=== PATIENT | male | born 1975 | race Caucasian/White ===

== ENCOUNTER 2017-11-09 14:40 | Observation (INO) | payer OTHER ==
[2017-11-09 15:19] LABS: #Eosinphils 0.3 thou/uL (0.0-0.7); #Lymphocytes 1.9 thou/uL (1.20-3.40); #Monocytes 0.8 thou/uL (0.11-0.59); #Neutrophils 5.2 thou/uL (1.40-6.50); %Basophils 0.5 % (0.0-1.0); %Eosinophils 3.9 % (0.0-10.0); %Lymphocytes 22.6 % (21.0-51.0); %Monocytes 9.6 % (0.0-10.0); %Neutrophils 63.4 % (42.0-75.0); Hemoglobin 14.4 g/dL (14.0-18.0); Mean Corpuscular HGB CONC 34.1 g/dL (32.0-36.0); Mean Corpuscular Hemoglobin 31.2 pg (27.0-31.0); Mean Corpuscular Volume 91.6 fl (80.0-94.0); Mean Platelet Volume 7.6 fL (7.4-10.4); Platelet Count 203 thou/uL (130-400); RBC Distribution Width 11.4 % (11.5-14.5); White Blood Cell (WBC) Count 8.2 thou/uL (4.8-10.8)
[2017-11-09 15:42] LABS: ALT (SGPT) 26 U/L (8-55); AST (SGOT) 26 U/L (5-34); Albumin 4.5 g/dL (3.5-5.0); Alkaline Phosphatase 77 U/L (40-150); Anion Gap 14 mmol/L (10-20); BUN (Urea Nitrogen) 13 mg/dL (8.9-20.6); Bilirubin, Total 0.7 mg/dL (0.2-1.2); CK (CPK) 425 U/L (30-200); Calc. Creatinine Clearance 0 mL/min (70-130); Calcium 9.3 mg/dL (7.8-10.44); Carbon Dioxide 22 mmol/L (22-29); Chloride 105 mmol/L (98-107); Estimated GFR-MDRD 88; Globulin 2.8 g/dL (2.4-3.5); Glucose 108 mg/dL (70-105); Potassium 3.9 mmol/L (3.5-5.1); Protein, Total 7.3 g/dL (6.0-8.3); Sodium 137 mmol/L (136-145)
[2017-11-09 15:44] LABS: CKMB 6.5 ng/mL (0-6.6); Troponin I Less than 0.010 ng/mL (< 0.028)
[2017-11-09] MEDS ORDERED: Nitroglycerin 0.4 MG TAB (25 Tab Bottle) ONE (16:16)
--- NOTE | 2017-11-09 17:02 | RAD ---
PORTABLE CHEST 1 VIEW: Date: 11/09/17 Time: 1551 hours HISTORY: Chest pain. FINDINGS: The heart size is normal. The lungs are well expanded without focal areas of consolidation, pneumotho rax, or pleural effusions. IMPRESSION: No radiographic evidence of acute cardiopulmonary process. POS: [facility]
[2017-11-09] MEDS ORDERED: Nitroglycerin 0.4 MG TAB (25 Tab Bottle) PO PRN (18:05)
[2017-11-09] MEDS ORDERED: Acetaminophen 325 MG TAB PO PRN (18:05)
[2017-11-09] MEDS ORDERED: Acetaminophen 650 MG Suppository PR PRN (18:05)
--- NOTE | 2017-11-09 18:39 | HP ---
PRIMARY CARE PHYSICIAN: Dr. Nataliya Raines at [facility] in [place]. CHIEF COMPLAINT: Chest pain. HISTORY OF PRESENT ILLNESS: Mr. Pino is a pleasant 42-year-old gentleman who was seen at [facility] on 11/09/2017. He reports that she was standing around 2:00 p.m. today. At t hat time, he felt his heart flutter. He reports that the fluttering sensation lasted about 3-5 secon ds. He subsequently felt like he skipped a beat and then had normal rhythm. He reports that this wa s followed by pressures over the left side of his chest, which radiated to his neck. He is unable to rate the severity of the pressure. He reports that the pressure lasted approximately 30 minutes. H e reports that it was accompanied by lightheadedness, but not by nausea or shortness of breath. He d enies any recent long distance travel. He denies any cough, fevers or chills. He is unable to recal l any aggravating or relieving factors for the pressure. REVIEW OF SYSTEMS: The following complete review of systems was negative, unless otherwise mentioned in the HPI or below: Constitutional: Weight loss or gain, ability to conduct usual activities. Skin: Rash, itching. Eyes: Double vision, pain. ENT/Mouth: Nose bleeding, neck stiffness, pain, tenderness. Cardiovascular: Palpitations, dyspnea on exertion, orthopnea. Respiratory: Shortness of breath, wheezing, cough, hemoptysis, fever or night sweats. Gastrointestinal: Poor appetite, abdominal pain, heartburn, nausea, vomiting, constipation, or diarrhea. Genitourinary: Urgency, frequency, dysuria, nocturia. Musculoskeletal: Pain, swelling. Neurologic/Psychiatric: Anxiety, depression. Allergy/Immunologic: Skin rash, bleeding tendency. PAST MEDICAL HISTORY: None. PAST SURGICAL HISTORY: Appendectomy, left fifth digit surgery, lumbar spine surgery. PSYCHIATRIC HISTORY: PTSD. SOCIAL HISTORY: The patient drinks alcohol on a weekly basis. He denies tobacco use or recreational drug use. FAMILY HISTORY: Significant for coronary artery disease in his father and hypertension in his mother . ALLERGIES: GABAPENTIN. CURRENT MEDICATIONS: Include Prozac 80 mg daily, Wellbutrin-XL 300 mg daily, trazodone 100 mg at bed time, and terazosin 2 mg at bedtime. PHYSICAL EXAMINATION: GENERAL: Mr. Pino is awake and alert, not in acute distress. VITAL SIGNS: Blood pressure is 157/66, pulse is 75. He is breathing at rate of 18, and saturating 9 7% on room air. He is afebrile. He is obese. EYES: No scleral icterus. No conjunctival pallor. ENT: Moist mucosal membranes, no oropharyngeal erythema or exudates. NECK: Supple, nontender, normal range of movement, trachea is midline. CARDIOVASCULAR: S1 and S2 are heard, regular. LUNGS: Peripheral pulses palpable. No carotid bruit, no pericardial rub. ABDOMEN: Soft, nontender, bowel sounds are heard, no hepatomegaly, no splenomegaly. NEUROLOGIC: Cranial nerves II-XII are intact. Deep tendon reflexes are 2+. MUSCULOSKELETAL: Power is 5/5 in all 4 extremities. Normal range of movement at all major extremity joints. SKIN: No rashes or subcutaneous nodules. No lower extremity edema. PSYCHIATRIC: Normal mood and normal affect, the patient is oriented to person, place and time. LYMPHATIC: No cervical lymphadenopathy. LABORATORY DATA: Mr. Pino's labs and investigations were reviewed. I reviewed his electrocardiogram , which shows normal sinus rhythm, no ST changes to suggest an acute coronary syndrome. I also revie wed his chest x-ray, which does not show any pulmonary infiltrates. Laboratory investigation show a normal white count, normal hemoglobin, normal platelet count, normal electrolytes, normal creatinine, elevated creatinine kinase of 425, normal liver profile and normal troponin I. ASSESSMENT AND PLAN: Mr. Pino is a pleasant 42-year-old gentleman who was seen at [facility] on 11/09/2017. His problem list includes: 1. Chest pain: The etiology is unclear. Mr. Pino will be admitted to the hospital for further kulwinder gement, including telemetry monitoring. We will check his troponin level again. We will also reques t a stress test to rule out cardiac causes. We will also check D-dimer to rule out pulmonary embolis m. 2. Palpitations. He also reports palpitations. He will be monitored on telemetry for any recurrenc e. 3. Post-traumatic stress disorder: Home medications will be continued for post-traumatic stress dis order. 4. Rhabdomyolysis: Mild. He has a normal creatinine. We will provide intravenous hydration and re check his CK level. Many thanks for allowing me to participate in your patient's care. Please feel free to contact me wi th any questions or concerns. LEVEL OF RISK: High. LEVEL OF COMPLEXITY: High.
[2017-11-09 19:08] LABS: Troponin I Less than 0.010 ng/mL (< 0.028)
[2017-11-09] MEDS ORDERED: Ondansetron ODT 4 MG TAB SL PRN (19:24)
[2017-11-09] MEDS ORDERED: Ondansetron HCl/PF 4 MG/2 ML Vial IVP PRN (19:24)
[2017-11-09 19:25] VITALS: BMI 38.1
[2017-11-09] MEDS: Sodium Chloride 0.9% 1,000 ML IV SCH (20:38)
[2017-11-09] MEDS ORDERED: traZODone HCl 50 MG TAB PO SCH (21:00)
[2017-11-09] MEDS ORDERED: Prazosin HCl 1 MG CAP PO SCH (21:00)
[2017-11-09 22:05] LABS: Troponin I Less than 0.010 ng/mL (< 0.028)
[2017-11-10 04:56] LABS: #Eosinphils 0.3 thou/uL (0.0-0.7); #Lymphocytes 2.2 thou/uL (1.20-3.40); #Monocytes 0.6 thou/uL (0.11-0.59); #Neutrophils 3.3 thou/uL (1.40-6.50); %Basophils 0.5 % (0.0-1.0); %Eosinophils 5.2 % (0.0-10.0); %Lymphocytes 33.8 % (21.0-51.0); %Monocytes 9.6 % (0.0-10.0); Hemoglobin 12.3 g/dL (14.0-18.0); Mean Corpuscular HGB CONC 33.4 g/dL (32.0-36.0); Mean Corpuscular Hemoglobin 30.6 pg (27.0-31.0); Mean Corpuscular Volume 91.7 fl (80.0-94.0); Mean Platelet Volume 7.7 fL (7.4-10.4); Platelet Count 155 thou/uL (130-400); RBC Distribution Width 11.4 % (11.5-14.5); White Blood Cell (WBC) Count 6.4 thou/uL (4.8-10.8)
[2017-11-10 05:12] LABS: Anion Gap 10 mmol/L (10-20); BUN (Urea Nitrogen) 12 mg/dL (8.9-20.6); CK (CPK) 267 U/L (30-200); Calc. Creatinine Clearance 185 mL/min (70-130); Calcium 8.2 mg/dL (7.8-10.44); Carbon Dioxide 24 mmol/L (22-29); Chloride 110 mmol/L (98-107); Estimated GFR-MDRD Greater than 90; Glucose 100 mg/dL (70-105); Sodium 140 mmol/L (136-145)
[2017-11-10] MEDS ORDERED: FLUoxetine HCl 20 MG CAP PO SCH (09:00)
[2017-11-10] MEDS ORDERED: Bupropion 150 MG XL TAB PO SCH (09:00)
[2017-11-10] MEDS ORDERED: Enoxaparin Sodium 40 MG/0.4 ML SYRINGE SC SCH (09:00)
[2017-11-10] MEDS: Sodium Chloride 0.9% 1,000 ML IV SCH (09:27)
[2017-11-10 13:47] VITALS: BP 137/62; TEMP 98.1
--- NOTE | 2017-11-10 13:57 | DIS ---
DATE OF ADMISSION: 11/09/2017 DATE OF DISCHARGE: 11/10/2017 PRIMARY CARE PROVIDER: Dr. Nataliya Raines. DISCHARGE DIAGNOSES: Chest pain. CONDITION OF PATIENT ON THE DAY OF DISCHARGE: Stable. I assessed Mr. Pino on the day of discharge. He denies any chest pain or shortness of breath. Vital signs are stable. S1 and S2 are heard, regu lar. Lungs are clear to auscultation bilaterally. DISCHARGE MEDICATIONS: No changes were made to his preadmission medications as dictated on history a nd physical note from 11/09/2017. HOSPITAL COURSE: Mr. Pino is a pleasant 42-year-old gentleman who was admitted to [facility] on 11/09/2017 for chest pain. Pulmonary embolism was ruled out with a negative D-dim er. He also had a nuclear stress test. The preliminary report indicates that this test was normal w ith an ejection fraction of 57%. He had normal wall motion. His chest pain resolved. There were no arrhythmias on telemetry monitoring. One of his presenting c omplaints was that he felt that his heart was racing. He is advised to follow up with his primary care provider in 3-5 days. He may need Cardiology servic e referral as outpatient for monitoring if he continues to have palpitations. I have advised him to discuss with his primary care provider regarding this issue. On the day of discharge, he has a white count of 6400, hemoglobin 12.3, platelet count 155,000. Sodi um 140, potassium 4.0, creatinine 0.87. He also had elevated CK of 425 on the day of admission, it d ecreased to 267 on the day of discharge. Many thanks for allowing me to participate in your patient's care. Please feel free to contact me wi th any questions or concerns. DISCHARGE DESTINATION: Home.
--- NOTE | 2017-11-10 14:58 | NM ---
NUCLEAR MEDICINE CARDIAC STRESS TEST WITH EJECTION FRACTION: HISTORY: Chest pain. COMPARISON: None. TECHNIQUE: Stress and rest was performed after the intravenous administration of 31 and 9 mCi technetium-99m ses tamibi intravenously, respectively. FINDINGS: No evidence for ischemia or infarct. No wall motion abnormality. Ejection fraction calculated at 57%. IMPRESSION: No evidence for scar or ischemia. Ejection fraction 57%. POS: [facility]
--- NOTE | 2017-11-15 15:16 | EKG ---
Test Reason : CHEST FLUTTER Blood Pressure : / mmHG Vent. Rate : 082 BPM Atrial Rate : 082 BPM P-R Int : 150 ms QRS Dur : 088 ms QT Int : 376 ms P-R-T Axes : 063 059 032 degrees QTc Int : 439 ms Normal sinus rhythm Possible Left atrial enlargement Borderline ECG Confirmed by BETINA DEMARCO ([id number]), electronic news gathering editor MARTINA ALFONSO ([id number]) on 11/15/2017 3:16:12 PM Referred By: Confirmed By:BETINA DEMARCO
== END 2017-11-10 14:52 | disposition home or self-care (01) ==
LOC: ERS 14:40 → 2SW 19:13
PROVIDERS: ADMIT Internal Medicine; ATTEND Internal Medicine
DX: R07.89 Other chest pain (principal); R00.2 Palpitations; F43.10 Post-traumatic stress disorder, unspecified; Z88.8 Allergy status to other drugs, medicaments and biological substances; Z79.899 Other long term (current) drug therapy; Z82.49 Family history of ischemic heart disease and other diseases of the circulatory system; Z90.49 Acquired absence of other specified parts of digestive tract; Z98.890 Other specified postprocedural states
CPT/HCPCS: 36415; 71045; 78452; 80048; 80053; 82550; 82553; 84484; 85025; 85379; 93005; 93017; 94760; 96360; 96361; 96372; A4216; A9500; G0378; J0153; J1650